=== PATIENT | female | born 2005 | race Caucasian/White ===

== ENCOUNTER 2024-08-10 03:07 | Emergency (ER) | payer BC, SELFPAY ==
[2024-08-10 03:16] VITALS: BP 123/77; PULSE 99; RESP 16; TEMP 36.8; O2SAT 98; BMI 19.2
--- NOTE | 2024-08-10 03:24 | ED.NAVMDI ---
HPI - Nausea/Vomiting/Diarrhea General Date Seen: 08/10/24 Chief complaint: Nausea/Vomiting Stated complaint: vomitting Time Seen by Provider: 08/10/24 03:13 Source: patient Mode of arrival: ambulatory Limitations: no limitations History of Present Illness HPI Narrative: Patient is a 19-year-old female presenting to emergency department for concerns about nausea, vomiting, diarrhea. States she fell asleep or own 930-10 p.m. tonight with a headache. When she woke up today headache was gone but she was feeling very nauseated. Has vomited 5 times since she woke up around 01:00. States she vomited shortly prior to my evaluation. States she is currently not feeling nauseated due to the recent vomiting, but does think the nausea will return. Is not having any abdominal pain she states. Is not aware of any sick contacts. Denies fevers, chills, chest pain, shortness of breath, lightheadedness, dizziness, weakness, numbness. States the headache has resolved. Has had 2 episodes diarrhea since she woke up. Describes it as watery diarrhea. States she not eat much yesterday and other than a coffee from a gas station do not to eat or drink anything abnormal for her. No other concerns noted at this time. Related Data Home Medications ?Medication ?Instructions ?Recorded ?Confirmed dextroamphetamine-amphetamine ER 10 mg PO DAILY 08/10/24 08/10/24 10 mg 24hr capsule,extend release (Adderall XR) Previous Rx's ?Medication ?Instructions ?Recorded ondansetron 4 mg disintegrating 4 mg PO Q6H #20 tabs 08/10/24 tablet Allergies Allergy/AdvReac Type Severity Reaction Status Date / Time No Known Drug Allergies Allergy Verified 08/10/24 03:19 Review of Systems Status of ROS: Reports: 10 or more systems reviewed and unremarkable except as noted in History and below [facility] Social History Smoking Status: Never smoker Do you use any of these nicotine containing products: None How often do you have a drink containing alcohol: never AUDIT-C Alcohol total score: 0 Non-prescribed substance use: denies use Exam Narrative: Exam Narrative: Const: Well-nourished, Well-developed, in mild distress Eyes: PERRL, no conjunctival injection, and symmetrical lids HENT: Atraumatic external nose and ears. Moist mucous membranes. Neck: Symmetric, trachea midline, No thyromegaly. CVS: RRR, No murmurs or gallops. Peripheral pulses 2+ and equal in all extremities RESP: Unlabored respiratory effort. Clear to auscultation bilaterally. GI: Nontender/Nondistended, No rebound or guarding. MSK:Extremities w/o deformity, Normal Active ROM Skin: Warm, Dry. No rashes or lesions. Neuro: Normal Muscle tone, No focal neurological deficits. Psych: Awake, Alert, & Oriented x3. Appropriate mood and affect. Const: Vital Signs, click to edit/add: Vital Signs - 24 hr 08/10/24 03:16 Temperature 98.3 F Pulse Rate [Pulse Oximeter] 99 Respiratory Rate 16 Blood Pressure [Ri ght Upper Arm] 123/77 Pulse Oximetry 98 Oxygen Delivery Me thod Room Air Course Vital Signs Vital signs: Initial Vital Signs Temperature 98.3 F 08/10/24 03:16 Temperature Source Temporal Artery Scan 08/10/24 03:16 Pulse Rate 99 08/10/24 03:16 Respiratory Rate 16 08/10/24 03:16 Blood Pressure 123/77 08/10/24 03:16 Blood Pressure Mean 92 08/10/24 03:16 Blood Pressure Position Sitting 08/10/24 03:16 Pulse Oximetry 98 08/10/24 03:16 Oxygen Delivery Method Room Air 08/10/24 03:16 Vital Signs Temperature 98.3 F 08/10/24 03:16 Pulse Rate 99 08/10/24 03:16 Respiratory Rate 16 08/10/24 03:16 Blood Pressure 123/77 08/10/24 03:16 Pulse Oximetry 98 08/10/24 03:16 Oxygen Delivery Method Room Air 08/10/24 03:16 Temperature 98.3 F 08/10/24 03:16 Pulse Rate 99 08/10/24 03:16 Respiratory Rate 16 08/10/24 03:16 Blood Pressure 123/77 08/10/24 03:16 Pulse Oximetry 98 08/10/24 03:16 Oxygen Delivery Method Room Air 08/10/24 03:16 Medications Administered Medications: Generic Name Dose Route Start Last Admin Trade Name Freq PRN Reason Stop Dose Admin Ondansetron HCl 4 mg 08/10/24 03:23 08/10/24 03:26 Ondansetron Odt 4 Mg Tab PO 08/10/24 03:24 4 mg ONCE ONE Administration MDM - Nausea/Vomiting/Diarrhea MDM Narrative Medical decision making narrative: Patient is a 19-year-old female presenting for nausea/vomiting/diarrhea. Is not currently nauseated due to vomiting shortly prior to my evaluation. Will give her Zofran though to help with any future nausea. Will also order CBC, CMP, lipase, test, viral swabs to look for any other potential abnormalities. As she is not having any pain at this time I do not believe is necessary to do any imaging. Lab work returned showing no concerning abnormalities. Nausea has not returned. Viral swabs are negative. She is doing well. At this point she is likely having gastroenteritis. Will discharge with Zofran. She is agreeable to this plan Lab Data Labs: Lab Results 08/10/24 08/10/24 Range/Units 03:23 03:30 WBC 8.61 (4.50-11.00) K/uL RBC 4.44 (4.00-5.20) m/uL Hgb 14.0 (12.0-16.0) gm/dL Hct 39.3 (33.0-51.0) % MCV 89 (80-100) fL MCH 32 (26-34) pg MCHC 36 (32-36) gm/dL RDW Coeff of Juan Francisco 11.3 L (11.5-15.5) % Plt Count 225 (140-440) K/uL Neut % (Auto) 87.6 H (42.0-72.0) % Lymph % (Auto) 6.5 L (20-44) % Bergen % (Auto) 4.4 (0.0-11.0) % Eos % (Auto) 1.3 (0.0-7.0) % Baso % (Auto) 0.0 (0.0-3.0) % Neut # (Auto) 7.50 H (1.7-7.0) K/uL Lymph # (Auto) 0.60 L (0.90-2.90) K/uL Bergen # (Auto) 0.40 (0.00-0.90) K/UL Eos # (Auto) 0.11 (0.00-0.50) K/uL Baso # (Auto) 0.00 (0.00-0.30) K/uL Abs Immat Gran (auto) 0.02 (0.00-0.30) K/uL Imm/Tot Granulo (auto) 0.2 % Sodium 138 (135-149) mmol/L Potassium 3.7 (3.6-5.1) mmol/L Chloride 104 (96-114) mmol/L Carbon Dioxide 25 (20-32) mmol/L Anion Gap 9 (7-15) mEq/L BUN 11 (5-24) mg/dL Creatinine 0.4 L (0.5-1.5) mg/dL Estimated Creat Clear 208.84 Estimated GFR 145 ml/min Glucose 115 (60-115) mg/dL Calcium 9.5 (8.4-10.6) mg/dL Total Bilirubin 1.2 (0.1-1.5) mg/dL AST 25 (12-35) U/L ALT 16 (4-35) U/L Alkaline Phosphatase 55 (40-150) U/L Total Protein 7.4 (6.0-8.3) g/dL Albumin 4.8 (3.3-5.0) g/dL Lipase 19 L (23-300) U/L HCG, Qual Negative (Negative) SARS-CoV-2 (PCR) Negative SARS-CoV-2 (Negative) Influenza Type A (PCR) Negative PCR FLU A (Negative) Influenza Type B (PCR) Negative PCR FLU B (Negative) RSV (PCR) Negative PCR RSV (Negative) Discharge Plan Discharge Clinical Impression: Gastroenteritis Patient Disposition: Home, Self-Care Condition: Stable Instructions: Acute Nausea and Vomiting (DC) Additional Instructions: Take the Zofran as needed for nausea. Make sure to stay well hydrated. Return to emergency department for new or worsening symptom. Prescriptions: New ondansetron 4 mg tablet,disintegrating 4 mg PO Q6H Qty: 20 0RF No Action dextroamphetamine-amphetamine [Adderall XR] 10 mg capsule,extended release 24hr 10 mg PO DAILY Follow Up/Referrals: Provider,Not a Local [Primary Care Provider] - Stand Alone Forms: MyHealth Info Instructions
[2024-08-10] MEDS: ONDANSETRON ODT 4 MG TAB PO (03:26)
[2024-08-10 03:38] LABS: Eosinophils Absolute Auto 0.11 K/uL (0.00-0.50); Eosinophils Percent Auto 1.3 % (0.0-7.0); Hematocrit 39.3 % (33.0-51.0); Immature Granulocytes Abs Auto 0.02 K/uL (0.00-0.30); Immature Granulocytes Pct Auto 0.2 %; Lymphocytes Percent Auto 6.5 % (20-44); Mean Corpuscular HGB Conc 36 gm/dL (32-36); Mean Corpuscular Hemoglobin 32 pg (26-34); Mean Corpuscular Volume 89 fL (80-100); Monocytes Percent Auto 4.4 % (0.0-11.0); Neutrophils Percent Auto 87.6 % (42.0-72.0); Platelet Count* 225 K/uL (140-440); RDW Coefficient of Variation % 11.3 % (11.5-15.5); Red Blood Count 4.44 m/uL (4.00-5.20); White Blood Count* 8.61 K/uL (4.50-11.00)
[2024-08-10 03:41] LABS: Slide Review Reflex No
--- OUTSIDE RECORDS SUMMARY | 2024-08-10 03:43 | XMS_ITS | Clinical Summary ---
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 Primary Care Provider Unavailabl e Allergies No known active allergies Medications No known medications Family History Medical History Relation Comments Cancer Neg Hx Diabetes Neg Hx Heart disease Neg Hx Hyperlipidemia Neg Hx Hypertension Neg Hx Social History Tobacco Use Types Packs/Day Years Used Date Smoking Tobacco: Never Alcohol Use Standard Drinks/Week Comments Not Asked 0 (1 standard drink = 0.6 oz pur e alcohol) Comments No Sex and Gender Information Value Date Recorded Sex Assigned at Not on file Legal Sex Female 1:04 AM EDT Gender Identity Not on file Sexual Orientation Not on file Last Filed Vital Signs Vital Sign Reading Time Taken Comments Blood Pressure 90/60 01/09/2016 4:51 PM CDT Pulse 70 01/09/2016 4:51 PM CDT Temperature 36.8 C (98.3 F) 01/09/2016 4:51 PM CDT Respiratory Rate 16 01/09/2016 4:51 PM CDT Oxygen Saturation 97% 01/09/2016 4:51 PM CDT Inhaled Oxygen Concentration - - Weight 36 kg (79 lb 4.8 oz) 01/09/2016 4:51 PM C DT Height 152.4 cm (5') 01/09/2016 4:51 PM CDT Body Mass Index 15.49 01/09/2016 4:51 PM CDT Plan of Treatment Health Maintenance Due Date Last Done Comments Depression: Screening Annual ly using PHQ-2/9 in Adults 18 yrs or above (or HM Modifier)([facility]) 2022 Hepatitis C Virus Infection in Adolescents and Adults: Screening (or Modifier) ([facility]) 2022 Human Immunodeficiency Virus (HIV) Infection: Screening Annually (or Modifier)([facility]) 2022 SDOH Screening Reminder: Lyn lorenzana for all adults ([facility]) 2022 Tobacco Smoking Cessation: i n Adults excluding Women: Behavioral and Pharmacotherapy Interventions ([facility]) 2022 DTaP/Tdap/Td Vaccines ([facility]) (1 - Tdap) 2023 Flu Vaccination: Yearly for ages 18mos through 64 years (or Modifier)([facility]) 03/09/2024 COVID-19 Vaccine Screening: Initial Series and Booster Status ([facility]) ( - 2023- season) 2024 Lipid Screening: Once for Wo men aged 20 to 45 yrs ([facility]) 2024 Zoster/Shingles Vaccine Seri es Screening: Adults aged 18+ yrs (or HM Modifiers)([facility]) (1 of 2) 2054 Pneumococcal Vaccination Scr eening: Pts 0-19 & 19-64 yrs of age ([facility]) Aged Out No longer eligible based on patient's age to complete this topic Medical Devices Not on file Care Teams Grating Machine Operator Relationship Specialty Start Date End Date No, Pcp, [employer] N/A Do not use PCP - General 01/09/16
--- OUTSIDE RECORDS SUMMARY | 2024-08-10 03:44 | XMS_ITS | Encounter Summary ---
Author Organization [facility] Address [address] [place] [address] Care Team Providers Care Marketing Operations Coordinator Name Role Phone Liyah Martin MD Primary Care Provider [phone] Bernice Galindo MD Unavailable [phone] Arielle Cason MD Unavailable Rn, [facility] RN Unavailable Veronica Montes De Oca RN Unavailable UnavailCarter Sheppard MD Unavailable UnavailMallory Rojo M.A. Unavailable Unavailable Jose Frankel RN Unavailable Unavailable Encounter Details Date Type Department Care Team (Latest Contact Info) Description 07/10/2024 Travel Social History Tobacco Use Types Packs/Day Years Used Date Smoking Tobacco: Some Days Cigarettes Smokeless Tobacco: Never Overall Financial Resource Strain (CARDIA) Answe r Date Recorded How hard is it for you to pa y for the very basics like food, housing, medical care, and heating? Not hard at all 04/06/2024 PHQ-2 Answer Date Recorded PHQ-2 Score 2 04/06/2024 Hunger Vital Sign Answer Date Recorded Within the past 12 months, y ou worried that your food would run out before you got the money to buy more. Never true 04/06/20 24 Within the past 12 months, t he food you bought just didn't last and you didn't have money to get more. Never true 04/06/2024 PRAPARE - Transportation Answer Date Re corded In the past 12 months, has l ack of transportation kept you from medical appointments or from getting medications? No 03/10 In the past 12 months, has l ack of transportation kept you from meetings, work, or from getting things needed for daily living? No 04/06/2024 Housing Stability Vital Sign Answer Darin e Recorded In the last 12 months, was t here a time when you were not able to pay the mortgage or rent on time? No 04/06/2024 In the last 12 months, how many places have you lived? 1 04/06/2024 In the last 12 months, was t here a time when you did not have a steady place to sleep or slept in a residential (including now)? No 04/06/2024 Sex and Gender Information Value Date Recorded Sex Assigned at Female 04/06/2024 8:05 AM CDT Gender Identity Female 04/06/2024 8:05 AM CDT Sexual Orientation Choose not to disclose 2023 8:05 AM CDT documented as of this encounter Plan of Treatment Not on file documented as of this encounter Visit Diagnoses Not on filedocumented in this encounter Care Teams Marketing Operations Coordinator Relationship Specialty Start Date End Date Liyah Martin MD [address] [facility] [address], [address] [place] [address] PCP - General 04 Bernice Galindo MD [address] [facility] [address] [place] [address] 01/25/10 Arielle Cason MD [address] [facility] [place] [address] 01/25/10 Rn, [facility], RN 01/25/10 Veronica Santana, TERESITA 01/25/10 Carter Varma MD 01/25/10 Mallory Murrell M.A. 01/25/10 Jose Frankel RN 01/25/10 documented as of this encounter
--- OUTSIDE RECORDS SUMMARY | 2024-08-10 03:44 | XMS_ITS | Referral Summary ---
Author Organization [facility] Address [address] [place] [address] Care Team Providers Care Tire Curer Name Role Phone Liyah Martin MD Primary Care Provider [phone] Bernice Galindo MD Unavailable [phone] Arielle Cason MD Unavailable Rn, [facility] Internal [facility] RN Unavailable Veronica Montes De Oca RN Unavailable UnavailCarter Sheppard MD Unavailable UnavailMallory Rojo M.A. Unavailable Unavailable Jose Frankel RN Unavailable Unavailable Source Comments You are receiving this document as you are listed as the PCP, follow-upprovider, or the patient hasbeen referred to you for consultation. This is incompliance with [facility] Transitions of Care Requirement. Note: Specific treatmentrecords and notes about services for mental health, developmental disabilities,alcoholism, drug dependence, or substance abuse, you will need to contact theMedical Records Department at [phone] and complete a separate Release ofAuthorization form. 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 [address] Liyah Martin MD Chest wall pain Discharge Disposition: HOME 07/10/2024 Travel 07/10/2024 8:15 AM [employer] ASSEMBLER Office Visit [facility] [address] [place] [address], [address] [address] Liyah Martin MD Adult ADHD (Primary Dx); Need for influenza vaccination; Chest wall pain; Menorrhagia with regular cycle Discharge Disposition: HOME 07/09/2024 Travel 06/22/2024 Refill [facility] [address] [address] Liyah Martin MD 06/21/2024 Telephone [facility] [address] [facility], [address] [address] Liyah Martin MD 06/13/2024 Refill [facility] [address] [facility], [address] [address] Liyah Martin MD Refill Request 06/11/2024 Refill [facility] [address] [place] [address], [address] [address] Liyah Martin MD Refill Request from Last 3 Months Allergies Active Allergy Reactions Criticality Noted Date Comments Environmental Runny nose 12/07/2016 Medications * Please verify all current medications with the patient. Medication Sig Dispensed Refills Start Date End Date Status Fexofenadine HCl (DIMA ALLERGY ORAL) Take by mouth daily as needed. Active amphetamine-dextroam phetamine XR (ADDERALL XR) 15 MG XR capsuleIndications:A dult ADHD Take 1 Capsule by mouth every morning. 30 Capsule 07/10/2024 Active amphetamine-dextroam phetamine (ADDERALL, 5MG,) 5 MG tabletIndications:Ad ult ADHD Take 1 Tablet by mouth daily. 30 Tablet 07/10/2024 Active Active Problems Problem Noted Date Diagnosed Date Gluteal pain 05/25/2016 IT band syndrome 05/25/2016 Allergic rhinitis due to pollen 01/04/2014 Dog bite of face 12/20/2012 Immunizations Name Administration Dates Next Due Covid-19 (Pfizer) Dilution R equired (Purple Cap) 08/11/2021,12/17/2020,11/27/2020 DTaP (Daptacel) <7 yrs (Inactive) 2009,08/26/2006,01/29/2005,12/04,2004 HIB (Unspecified) 2004 HPV9 Valent (Gardasil 9) 03/04/2020,12/26/2018 Hep B / HIB (COMVAX) 08/06/2005,2004 Hepatitis B Peds & Adolescents 2004 IPV (Polio) 02/21/2010, 5,2004,09/16 Influenza Trivalent (Fluzone / Fluarix / Flulaval / Afluria) 0.5mL (6mon &>) 05/09/2024 Influenza Vaccine 6-35 Mos 07/15/2005,06/09/2005 MMR 02/21/2010,12/03/2005 Meningococcal MCV4P (Menactra) 02/21/2021,2015 Pneumococcal Conjugate PCV7 08/06/2005,0 01/29/2005,2004,09/16 Tdap (Adacel) 02/13/2016 Varicella 02/13/2016,12/03/2005 Social History Tobacco Use Types Packs/Day Years Used Date Smoking Tobacco: Some Days Cigarettes Smokeless Tobacco: Never Tobacco Cessation:Ready to Q uit: Not Asked; Counseling Given: Yes Overall Financial Resource Strain (CARDIA) Answe r [...] place to sleep or slept in a retirement (including now)? No 04/06/2024 Sex and Gender Information Value Date Recorded Sex Assigned at Female 04/06/2024 8:05 AM CDT Gender Identity Female 04/06/2024 8:05 AM CDT Sexual Orientation Choose not to disclose 2023 8:05 AM CDT Last Filed Vital Signs Vital Sign Reading Time Taken Comments Blood Pressure 106/72 07/10/2024 8:17 AM [employer] ASSEMBLER Pulse 84 07/10/2024 8:17 AM [employer] ASSEMBLER Temperature 36.1 C (97 F) 07/10/2024 8:17 AM [employer] ASSEMBLER Respiratory Rate 14 03/17/2019 4:13 PM CDT Oxygen Saturation 98% 07/10/2024 8:17 AM [employer] ASSEMBLER Inhaled Oxygen Concentration - - Weight 59.1 kg (130 lb 3.2 oz) 07/10/2024 8:17 A M [employer] ASSEMBLER Height 175.3 cm (5' 9) 04/06/2024 7:57 AM CDT Body Mass Index 19.23 04/06/2024 7:57 AM CDT Plan of Treatment Not on file Procedures Procedure Name Priority Date/Time Associated Diagnosis Comments XR RIBS 2 VIEWS RIGHT Routine 07/10/2024 8:58 AM [employer] ASSEMBLER Chest wall pain from Last 3 Months Results * XR RIBS 2 VIEWS RIGHT (07/10/2024 8:58 AM [employer]ER GOODS ASSEMBLER) Anatomical Region Laterality Modality Chest Right Radiographic Felipa ging 07/10/2024 9:02 AM [employer] ASSEMBLER Impressions 07/10/2024 10:09 AM [employer] ASSEMBLER Normal right rib examination. It is of note that an acute non-displaced rib fracture can be inapparent on initial post-trauma imaging. Resident/Fellow: Sathish Laughlin 07/10/2024 9:04 AM This report is dictated with a resident or fellow. I personally reviewed the study and interpretation, made necessary changes, and agree with the findings documented in the report. Attending: Monique Whaley MD 07/10/2024 10:09 AM Narrative 07/10/2024 10:09 AM [employer]ER [employer] ASSEMBLER EXAM: Right ribs with PA and oblique view of the chest DATE: 07/10/2024 8:50 AM CLINICAL INDICATION: chest wall pain R07.89: Other chest pain COMPARISON: None. FINDINGS: Bones: AP, Oblique and Spot images of the right ribs are negative for acute displaced rib fracture. Negative focal pleural elevation. Chest: There is no pneumothorax. The lungs are clear. The cardiac silhouette size is normal. There is no significant pleural fluid. Procedure Note Monique Whaley MD - 07/10/2024 EXAM: Right ribs with PA and oblique view of the chest DATE: 07/10/2024 8:50 AM CLINICAL INDICATION: chest wall pain R07.89: Other chest pain COMPARISON: None. FINDINGS: Bones: AP, Oblique and Spot images of the right ribs are negative foracute displaced rib fracture. Negative focal pleural elevation. Chest: There is no pneumothorax. The lungs are clear. The cardiacsilhouette size is normal. There is no significant pleural fluid. IMPRESSION: Normal right rib examination. It is of note that an acute non-displaced rib fracture can be inapparenton initial post-trauma imaging. Resident/Fellow: Sathish Laughlin 07/10/2024 9:04 AM This report is dictated with a resident or fellow. I personally reviewedthe study and interpretation, made necessary changes, and agree with thefindings documented in the report. Attending: Monique Whaley MD 07/10/2024 10:09 AM Liyah Martin MD IMG XR PROCEDURES from Last 3 Months Care Teams Tire Curer Relationship Specialty Start Date End Date Liyah Martin MD [address], [address] [place] [address] PCP - General 04 Bernice Galindo MD [address] [place] [address] 01/25/10 Arielle Cason MD [address] [place] [address] 01/25/10 Rn, [facility], RN 01/25/10 Veronica Santana, TERESITA 01/25/10 Carter Varma MD 01/25/10 Mallory Murrell, MArtAArt 01/25/10 Jose Frankel, TERESITA 01/25/10
--- OUTSIDE RECORDS SUMMARY | 2024-08-10 03:44 | XMS_ITS | Encounter Summary ---
Author Organization [facility] Address [address] [place] [address] Care Team Providers Care Sex Worker Or Escort Name Role Phone Liyah [place] MD Primary Care Provider [phone] Bernice Galindo MD Unavailable [phone] Arielle Cason MD Unavailable Rn, Obt Internal Med RN Unavailable Veronica Montes De Oca RN Unavailable UnavailCarter Sheppard MD Unavailable UnavailMallory Rojo M.A. Unavailable Unavailable Jose Frankel RN Unavailable Unavailable Reason for Visit * Reason Comments Follow Up Encounter Details Date Type Department Care Team (Late st Contact Info) Description 07/10/2024 8:15 AM COMPUTER TRAINING SPECIALIST Office Visit [facility] [address] [facility], [address] [place] [address] Liyah [place] MD [address] [address] [address], [address] [place] [address] Adult ADHD (Primary Dx); Need for influenza vaccination; Chest wall pain; Menorrhagia with regular cycle Discharge Disposition: HOME Social History Tobacco Use Types Packs/Day Years [...] place to sleep or slept in a fdc (including now)? No 04/06/2024 Sex and Gender Information Value Date Recorded Sex Assigned at Female 04/06/2024 8:05 AM CDT Gender Identity Female 04/06/2024 8:05 AM CDT Sexual Orientation Choose not to disclose 2023 8:05 AM CDT documented as of this encounter Last Filed Vital Signs Vital Sign Reading Time Taken Comments Blood Pressure 106/72 07/10/2024 8:17 AM COMPUTER TRAINING SPECIALIST Pulse 84 07/10/2024 8:17 AM COMPUTER TRAINING SPECIALIST Temperature 36.1 C (97 F) 07/10/2024 8:17 AM COMPUTER TRAINING SPECIALIST Respiratory Rate - - Oxygen Saturation 98% 07/10/2024 8:17 AM COMPUTER TRAINING SPECIALIST Inhaled Oxygen Concentration - - Weight 59.1 kg (130 lb 3.2 oz) 07/10/2024 8:17 A M COMPUTER TRAINING SPECIALIST Height - - Body Mass Index 19.23 04/06/2024 7:57 AM CDT documented in this encounter Progress Notes * Liyah [place] MD - 07/10/2024 8:15 AM CST CC: Here for med and weight check HPI: #1) Patient was started on Adderall 5 mg in March At her last visit in May we increased Adderall to 10 mg Patient here today for weight and med check 10 is much better then 5! 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 Patient states she does not smoke cigarettes Wt Readings from Last 4 Encounters: 07/10/24 59.1 kg (130 lb 3.2 oz) (54%, Z= 0.09)* 05/09/24 59.1 kg (130 lb 6.4 oz) (54%, Z= 0.11)* 04/06/24 62.8 kg (138 lb 6.4 oz) (67%, Z= 0.45)* 02/27/22 63 kg (138 lb 12.8 oz) (75%, Z= 0.68)* * Growth percentiles are based on [facility] (Girls, 2-20 Years) data. BP Readings from Last 4 Encounters: 07/10/24 106/72 05/09/24 108/73 04/06/24 97/65 02/27/22 112/75 (54%, Z = 0.10 / 82%, Z = 0.92)* *BP percentiles are based on the 2017 AAP Clinical Practice Guideline for girls Pulse Readings from Last 4 Encounters: 07/10/24 84 05/09/24 77 04/06/24 79 02/27/22 78 Patient Active Problem List Diagnosis ??? Dog bite of face ??? Allergic rhinitis due to pollen ??? Gluteal pain ??? IT band syndrome Current Outpatient Medications Medication Sig ??? amphetamine-dextroamphetamine XR (ADDERALL XR) 10 MG XR capsule Take 1 Capsule by mouth every morning. ??? amphetamine-dextroamphetamine XR (ADDERALL XR) 10 MG XR capsule Take 1 Capsule by mouth every morning. ??? fexofenadine (DIMA ALLERGY CHILDRENS) 30 MG tablet Take 1 Tablet by mouth once daily as needed. Indications: Hayfever No current facility-administered medications for this visit. ALLERGY:Seasonal [environmental] OBJECTIVE: GENERAL: Patient NAD Bilateral breast exam was done WNL rate was Ribs were palpated under breast bilateral No difference was noted When palpating the rib on the right side mild discomfort was noted ASSESSMENT: ICD-10-CM ICD-9-CM 1. Adult ADHD F90.9 314.01 amphetamine-dextroamphetamine XR (ADDERALL XR) 15 MG XR capsule amphetamine-dextroamphetamine (ADDERALL, 5MG,) 5 MG tablet 2. Need for influenza vaccination Z23 V04.81 CANCELED: INFLUENZA (FLUARIX) TRIVALENT 0.5ML >6 MON (FC) 3. Chest wall pain R07.89 786.52 XR RIBS 2 VIEWS RIGHT 4. Menorrhagia with regular cycle N92.0 626.2 Trial of Adderall 15 mg with a 5 mg booster dose to help with studying Continue good nutrition Patient left before flu shot Will rule out bony abnormality with x-ray today Discussed side effects of OCPs see patient back in spring UTER TRAINING SPECIALIST documented in this encounter Nursing Notes * Bernice Herbert CMA - 07/10/2024 8:15 AM CST Pt. Identified Name and Pt. Is here for a F/U Mask was worn while rooming patient. Pt also was wearing a mask. Pt. Denied having any pain when asked. UTER TRAINING SPECIALIST documented in this encounter Plan of Treatment Not on file documented as of this encounter Results * XR RIBS 2 VIEWS RIGHT (07/10/2024 8:58 AM COMPUTER TRAINING SPECIALIST) Anatomical Region Laterality Modality Chest Right Radiographic Felipa ging 07/10/2024 9:02 AM COMPUTER TRAINING SPECIALIST Impressions 07/10/2024 10:09 AM COMPUTER TRAINING SPECIALIST Normal right rib examination. It is of [...] 07/10/2024 10:09 AM Narrative 07/10/2024 10:09 AM COMPUTER TRAINING SPECIALIST EXAM: Right ribs with PA and oblique [...] AM Liyah Martin MD IMG XR PROCEDURES documented in this encounter Visit Diagnoses Diagnosis Adult ADHD- Primary Attention deficit disorder with hyperactivity Need for influenza vaccination Need for prophylactic vaccination and inoculation against influenza Chest wall pain Painful respiration Menorrhagia with regular cycle Excessive or frequent menstruation Chest wall pain Painful respiration documented in this encounter Care Teams Sex Worker Or Escort Relationship Specialty Start Date End Date Liyah [place] MD [address], [address] [place] [address] PCP - General 04 Bernice Galindo MD [address] [place] [address] 01/25/10 Arielle Cason MD [facility] [place] [address] 01/25/10 Teresita, Jennie Internal Med, RN 01/25/10 Veronica Santana, TERESITA 01/25/10 Carter Varma MD 01/25/10 Mallory Murrell MArtAArt 01/25/10 Jose Frankel, TERESITA 01/25/10 documented as of this encounter
--- OUTSIDE RECORDS SUMMARY | 2024-08-10 03:44 | XMS_ITS | Encounter Summary ---
Author Organization [facility] Address [address] [place] [address] Care Team Providers Care Manager Functional Name Role Phone Liyah [place] MD Primary Care Provider [phone] Bernice Galindo MD Unavailable [phone] Arielle Cason MD Unavailable Rn, Obt Internal Med RN Unavailable Veronica Montes De Oca RN Unavailable UnavailCarter Sheppard MD Unavailable UnavailMallory Rojo M.A. Unavailable Unavailable Jose Frankel RN Unavailable Unavailable Encounter Details Date Type Department Care Team (Latest Contact Info) Description 07/09/2024 Travel Social History Tobacco Use Types Packs/Day [...] place to sleep or slept in a longterm (including now)? No 04/06/2024 Sex and Gender Information Value Date Recorded Sex Assigned at Female 04/06/2024 8:05 AM CDT Gender Identity Female 04/06/2024 8:05 AM CDT Sexual Orientation Choose not to disclose 2023 8:05 AM CDT documented as of this encounter Plan of Treatment Not on file documented as of this encounter Visit Diagnoses Not on filedocumented in this encounter Care Teams Manager Functional Relationship Specialty Start Date End Date Liyah [place] MD [address] [facility] [address], [address] [place] [address] PCP - General 04 Bernice Galindo MD [address] [facility] [address] [place] [address] 01/25/10 Arielle Cason MD [address] [facility] [place] [address] 01/25/10 Rn, Jennie Internal Med, RN 01/25/10 Veronica Santana, TERESITA 01/25/10 Carter Varma MD 01/25/10 Mallory [place] M.A. 01/25/10 Jose Frankel RN 01/25/10 documented as of this encounter
--- OUTSIDE RECORDS SUMMARY | 2024-08-10 03:44 | XMS_ITS | Clinical Summary ---
Author Organization [facility] Address [address] [place] [address] Care Team Providers Care Psychiatric Assistant Name Role Phone Liyah [place] MD Primary Care Provider [phone] Bernice Galindo MD Unavailable [phone] Arielle Cason MD Unavailable Rn, Psychiatric Internal Med RN Unavailable Veronica Montes De Oca RN Unavailable UnavailCarter Sheppard MD Unavailable UnavailMallory Rojo M.A. Unavailable Unavailable Jose Frankel RN Unavailable Unavailable Source Comments You are receiving this document as you are listed as the PCP, follow-upprovider, or the patient hasbeen referred to you for consultation. This is incompliance with [facility] Transitions of Care Requirement. Note: Specific treatmentrecords and notes about services for mental health, developmental disabilities,alcoholism, drug dependence, or substance abuse, you will need to contact theMedical Records Department at [phone] and complete a separate Release ofAuthorization form. They are also available to answer other questions.[facility] Allergies Active Allergy Reactions Criticality Noted Date [...] pollen 01/04/2014 Dog bite of face 12/20/2012 Encounters Date Type Department Care Team Description 07/10/2024 8:50 AM PATIENT SCHEDULER Ancillary Procedure [facility] [address] [place] [address] Liyah [place] MD Chest wall pain Discharge Disposition: HOME 07/10/2024 8:15 AM PATIENT SCHEDULER Office Visit [facility] [address] [place] [phone] Liyah [place] MD Adult ADHD (Primary Dx); Need for influenza vaccination; Chest wall pain; Menorrhagia with regular cycle Discharge Disposition: HOME 07/10/2024 Travel 07/09/2024 Travel 06/22/2024 Refill [facility] [address] [place] [address], [address] [address] Liyah [place] MD 06/21/2024 Telephone [facility] [address] [place] [address], [address] [address] Liyah [place] MD 06/13/2024 Refill [facility] [address] [place] [address] Liyah [place] MD Refill Request 06/11/2024 Refill [facility] [address] [place] [address], [address] [address] Liyah [place] MD Refill Request from Last 3 Months Immunizations Name Administration Dates Next Due Covid-19 [...] place to sleep or slept in a nursing home (including now)? No 04/06/2024 Sex and Gender Information Value Date Recorded Sex Assigned at Female 04/06/2024 8:05 AM CDT Gender Identity Female 04/06/2024 8:05 AM CDT Sexual Orientation Choose not to disclose 2023 8:05 AM CDT Last Filed Vital Signs Vital Sign Reading Time Taken Comments Blood Pressure 106/72 07/10/2024 8:17 AM PATIENT SCHEDULER Pulse 84 07/10/2024 8:17 AM PATIENT SCHEDULER Temperature 36.1 C (97 F) 07/10/2024 8:17 AM PATIENT SCHEDULER Respiratory Rate 14 03/17/2019 4:13 PM CDT Oxygen Saturation 98% 07/10/2024 8:17 AM PATIENT SCHEDULER Inhaled Oxygen Concentration - - Weight 59.1 kg (130 lb 3.2 oz) 07/10/2024 8:17 A M PATIENT SCHEDULER Height 175.3 cm (5' 9) 04/06/2024 7:57 AM CDT Body Mass Index 19.23 04/06/2024 7:57 AM CDT Plan of Treatment Health Maintenance Due Date Last Done Comments PNEUMOCOCCAL VACCINE (1 of 2 - PCV) 2010 08/06/2005, 01/29/2005, 2004, Additional history exists HIV SCREEN 2019 Covid-19 Vaccine ( season) 2024 08/11/2021, 12/17/2020, 11/27/2020 CHOL SCREENING: EVERY 5 YEARS 2024 ANNUAL BMI COUNSELING 04/06/2025 04/06/2024 , 02/21/2021, 03/04/2020 ADULT VACCINE: TETANUS( TD) BOOSTER,EVERY 10 YR 02/12/2026 02/13/2016 ADULT VACCINE: SHINGRIX (1 of 2) 2054 VACCINE: HPV (CDC RULES) Completed 03/04/2020, 12/08 INFLUENZA VACCINE Completed 05/09/2024 PEDS RSV < 20 MON Aged Out No longer eligible based on patient's age to complete this topic Procedures Procedure Name Priority Date/Time Associated Diagnosis Comments XR RIBS 2 VIEWS RIGHT Routine 07/10/2024 8:58 AM PATIENT SCHEDULER Chest wall pain from Last 3 Months Results * XR RIBS 2 VIEWS RIGHT (07/10/2024 8:58 AM PATIENT SCHEDULER) Anatomical Region Laterality Modality Chest Right Radiographic Felipa ging 07/10/2024 9:02 AM PATIENT SCHEDULER Impressions 07/10/2024 10:09 AM PATIENT SCHEDULER Normal right rib examination. It is of [...] 07/10/2024 10:09 AM Narrative 07/10/2024 10:09 AM PATIENT SCHEDULER EXAM: Right ribs with PA and oblique [...] PROCEDURES from Last 3 Months Care Teams Psychiatric Assistant Relationship Specialty Start Date End Date Liyah [place] MD [address] [facility] [address], [address] [place], [place] [phone] PCP - General 04 Bernice Galindo MD [address] [facility] [address] [place], [place] [phone] 01/25/10 Arielle Cason MD [address] [facility] [place] [address] 01/25/10 Rn, Obtalexia Internal Med, RN 01/25/10 Veronica Santana, TERESITA 01/25/10 Carter Varma MD 01/25/10 Mallory [place] M.A. 01/25/10 Jose Frankel RN 01/25/10
--- OUTSIDE RECORDS SUMMARY | 2024-08-10 03:44 | XMS_ITS | Encounter Summary ---
Author Organization [facility] Address [address] [place] [address] Care Team Providers Care Artificial Breeding Ranch Supervisor Name Role Phone Liyah [place] MD Primary Care Provider [phone] Bernice Galindo MD Unavailable [phone] Arielle Cason MD Unavailable Rn, Obt Internal Med RN Unavailable Veronica Montes De Oca RN Unavailable UnavailCarter Sheppard MD Unavailable UnavailMallory Rojo M.A. Unavailable Unavailable Jose Frankel RN Unavailable Unavailable Encounter Details Date Type Department Care Team (Late st Contact Info) Description 12/20/2012 [facility] [address] [place], [place] [id number] Liyah [place] MD [address] [facility] [address], [address] [place], [place] [phone] <No scans attached> Social History Tobacco Use Types Packs/Day Years Used Date Smoking Tobacco: Never Assessed Sex and Gender Information Value Date Recorded Sex Assigned at Female 04/06/2024 8:05 AM CDT Gender Identity Female 04/06/2024 8:05 AM CDT Sexual Orientation Choose not to disclose 2023 8:05 AM CDT documented as of this encounter Plan of Treatment Not on file documented as of this encounter Visit Diagnoses Not on filedocumented in this encounter Care Teams Artificial Breeding Ranch Supervisor Relationship Specialty Start Date End Date Liyah [place] MD [address], [address] [place] [address] PCP - General 04 Bernice Galindo MD [address] [place] [address] 01/25/10 Arielle Cason MD [address] [facility] [place] [address] 01/25/10 Teresita, Jennie Internal Med, RN 01/25/10 Veronica Santana, TERESITA 01/25/10 Carter Varma MD 01/25/10 Mallory [place], MArtAArt 01/25/10 Jose Frankel, RN 01/25/10 documented as of this encounter
--- OUTSIDE RECORDS SUMMARY | 2024-08-10 03:44 | XMS_ITS | Encounter Summary ---
Author Organization [facility] Address [address] [place] [address] Care Team Providers Care Marble Machine Operator Name Role Phone Liyah [place] MD Primary Care Provider [phone] Bernice Galindo MD Unavailable [phone] Arielle Cason MD Unavailable Rn, Obt Internal Med RN Unavailable Veronica Montes De Oca RN Unavailable UnavailCarter Sheppard MD Unavailable UnavailMallory Rojo M.A. Unavailable Unavailable Jose Frankel RN Unavailable Unavailable Encounter Details Date Type Department Care Team (Latest Contact Info) Description 07/10/2024 8:50 AM VOCATIONAL EVALUATOR Ancillary Procedure [facility] [address] [facility] [place] [address] Liyah [place] MD [address] [facility] [address], [address] [place] [address] Chest wall pain Discharge Disposition: HOME Social History Tobacco Use [...] place to sleep or slept in a group home (including now)? No 04/06/2024 Sex and Gender Information Value Date Recorded Sex Assigned at Female 04/06/2024 8:05 AM CDT Gender Identity Female 04/06/2024 8:05 AM CDT Sexual Orientation Choose not to disclose 2023 8:05 AM CDT documented as of this encounter Plan of Treatment Not on file documented as of this encounter Procedures Procedure Name Priority Date/Time Associated Diagnosis Comments XR RIBS 2 VIEWS RIGHT Routine 07/10/2024 8:58 AM VOCATIONAL EVALUATOR Chest wall pain documented in this encounter Results * XR RIBS 2 VIEWS RIGHT (07/10/2024 8:58 AM VOCATIONAL EVALUATOR) Anatomical Region Laterality Modality Chest Right Radiographic Felipa ging 07/10/2024 9:02 AM VOCATIONAL EVALUATOR Impressions 07/10/2024 10:09 AM VOCATIONAL EVALUATOR Normal right rib examination. It is of [...] 07/10/2024 10:09 AM Narrative 07/10/2024 10:09 AM VOCATIONAL EVALUATOR EXAM: Right ribs with PA and oblique [...] documented in this encounter Visit Diagnoses Diagnosis Chest wall pain Painful respiration documented in this encounter Care Teams Marble Machine Operator Relationship Specialty Start Date End Date Liyah [place] MD [address] [facility] [address], [address] [place] [address] PCP - General 04 Bernice Galindo MD [address] [place] [address] 01/25/10 Arielle Cason MD [address] [facility] [place] [address] 01/25/10 Rn, Jennie Internal Med, RN 01/25/10 Veronica Santana, TERESITA 01/25/10 Carter Varma MD 01/25/10 [place], MArtAArt 01/25/10 Jose Frankel, RN 01/25/10 documented as of this encounter
--- OUTSIDE RECORDS SUMMARY | 2024-08-10 03:44 | XMS_ITS | Encounter Summary ---
Author Organization [facility] Address [address] [place] [address] Care Team Providers Care Milk Drying Machine Operator Name Role Phone Liyah [place] MD Primary Care Provider [phone] Bernice Galindo MD Unavailable Arielle Cason MD Unavailable Rn, Obt Internal Med RN Unavailable Veronica Montes De Oca RN Unavailable UnavailCarter Sheppard MD Unavailable UnavailMallory Rojo M.A. Unavailable Unavailable Jose Frankel RN Unavailable Unavailable Encounter Details Date Type Department Care Team (Late st Contact Info) Description 01/06/2012 [facility] [address] [place], [place] [phone] Liyah [place] MD [address] [facility] [address], [address] [place], [place] [phone] <No scans attached> Social History Tobacco Use [...] on filedocumented in this encounter Care Teams Milk Drying Machine Operator Relationship Specialty Start Date End Date Liyah [place] MD [address], [address] [place] [address] PCP - General 04 Bernice Galindo MD [address] [place] [address] 01/25/10 Arielle Cason MD [address] [facility] [place] [address] 01/25/10 Teresita, Jennie Internal Med, RN 01/25/10 Veronica Santana, TERESITA 01/25/10 Carter Varma MD 01/25/10 Mallory [place], MArtAArt 01/25/10 Jose Frankel, RN 01/25/10 documented as of this encounter
[2024-08-10 03:50] LABS: Albumin* 4.8 g/dL (3.3-5.0); Chloride* 104 mmol/L (96-114)
[2024-08-10 03:51] LABS: Potassium* 3.7 mmol/L (3.6-5.1); Sodium* 138 mmol/L (135-149)
[2024-08-10 03:53] LABS: Anion Gap 9 mEq/L (7-15); Aspartate Amino Transferase* 25 U/L (12-35); Bilirubin Total* 1.2 mg/dL (0.1-1.5); Blood Urea Nitrogen* 11 mg/dL (5-24); Carbon Dioxide* 25 mmol/L (20-32); Creatinine* 0.4 mg/dL (0.5-1.5); Est. Creatinine Clearance* 208.84; Estimated Glomerular Filt Rate 145 ml/min; Total Protein* 7.4 g/dL (6.0-8.3)
[2024-08-10 03:54] LABS: Alanine Aminotransferase* 16 U/L (4-35); Alkaline Phosphatase* 55 U/L (40-150); Calcium* 9.5 mg/dL (8.4-10.6); Glucose* 115 mg/dL (60-115); Lipase* 19 U/L (23-300)
[2024-08-10 03:57] LABS: HCG Qualitative Serum* Negative (Negative)
[2024-08-10 04:14] LABS: PCR FLU A Negative PCR FLU A (Negative); PCR FLU B Negative PCR FLU B (Negative); PCR RSV Negative PCR RSV (Negative); SARS PCR* Negative SARS-CoV-2 (Negative)
== END 2024-08-10 04:47 | disposition home or self-care (01) ==
PROVIDERS: Emergency Provider Student in an Organized Health Care Education/Training Program
DX: K52.9 Noninfective gastroenteritis and colitis, unspecified (principal)
CPT/HCPCS: 36415; 80053; 83690; 84703; 85025; 87631; 99283; 99284; A9270